=== PATIENT | male | born 1950 | race Caucasian/White ===

== ENCOUNTER 2022-07-21 08:45 | Outpatient (CLI) | payer MEDICARE | END 2022-07-21 08:46 | disposition home or self-care (01) | LOC: CSHWCC 08:45 | PROVIDERS: ATTEND Nurse Practitioner Family | DX: L89.893 Pressure ulcer of other site, stage 3 (principal) | CPT/HCPCS: 11042; 97139; G0463; 99203 ==

== ENCOUNTER 2022-07-28 10:58 | Outpatient (CLI) | payer MEDICARE | END 2022-07-28 10:59 | disposition home or self-care (01) | LOC: CSHWCC 10:58 | PROVIDERS: ATTEND Nurse Practitioner Family | DX: L89.893 Pressure ulcer of other site, stage 3 (principal) | CPT/HCPCS: 87070; 87077; 87186; 87205; 99212; G0463 ==

== ENCOUNTER 2022-07-28 11:50 | Outpatient (CLI) | payer MEDICARE | END 2022-07-28 11:51 | disposition home or self-care (01) | LOC: CSHRAD 11:50 | PROVIDERS: ATTEND Nurse Practitioner Family | DX: L89.893 Pressure ulcer of other site, stage 3 (principal); M19.072 Primary osteoarthritis, left ankle and foot ==

== ENCOUNTER 2022-07-31 08:14 | Outpatient (CLI) | payer MEDICARE | END 2022-07-31 08:15 | disposition home or self-care (01) | LOC: CSHWCC 08:14 | PROVIDERS: ATTEND Nurse Practitioner Family | DX: L89.893 Pressure ulcer of other site, stage 3 (principal) | CPT/HCPCS: 99213; G0463 ==

== ENCOUNTER 2022-08-07 09:34 | Outpatient (CLI) | payer MEDICARE | END 2022-08-07 09:35 | disposition home or self-care (01) | LOC: CSHWCC 09:34 | PROVIDERS: ATTEND Nurse Practitioner Family | DX: L89.893 Pressure ulcer of other site, stage 3 (principal) | CPT/HCPCS: 99212; G0463 ==